=== PATIENT | female | born 1985 | race Two or more races ===

== ENCOUNTER 2017-01-21 01:44 | Emergency (ER) | payer OTHER ==
[~2017-01-21] VITALS: Ht 167.6 cm; Wt 81.6 kg
[2017-01-21] MEDS ORDERED: CLINDAMYCIN HCL 150 MG CAPSULE PO ONE (03:30)
[2017-01-21] MEDS ORDERED: KETOROLAC TROMETHAMINE 30 MG INJ IVP ONE (03:30)
[2017-01-21] MEDS ORDERED: DEXAMETHASONE SOD PHOSPHATE 4 MG INJ IV ONE (03:30)
[2017-01-21] MEDS ORDERED: KETOROLAC TROMETHAMINE 30 MG INJ ONE (03:45)
[2017-01-21] MEDS ORDERED: CLINDAMYCIN HCL 300 MG CAPSULE ONE (03:45)
[2017-01-21] MEDS ORDERED: DEXAMETHASONE SOD PHOSPHATE 10 MG INJ ONE (03:45)
--- NOTE | 2017-01-21 04:07 | NUR ---
Patient discharged to home in stable conditon. Written and verbal after care instructions given. Patient verbalizes understanding of instructions.
== END 2017-01-21 04:08 | disposition home or self-care (01) ==
LOC: ER 01:47
DX: L04.0 Acute lymphadenitis of face, head and neck (principal); F17.200 Nicotine dependence, unspecified, uncomplicated; R50.9 Fever, unspecified; R51 Headache; Z88.6 Allergy status to analgesic agent
CPT/HCPCS: A4663; J1100; J1885

== ENCOUNTER 2017-03-23 14:25 | Emergency (ER) | payer OTHER ==
[~2017-03-23] VITALS: Ht 167.6 cm; Wt 81.6 kg
--- NOTE | 2017-03-23 14:57 | NUR ---
Dr العلي at the bedside for eval and exam.
[2017-03-23 15:45] LABS: *BILIRUBIN,URIN NEGATIVE (NEGATIVE); *BLOOD, URINE Trace-intact (NEGATIVE); *COLOR,URINE YELLOW (YELLOW); *KETONES,URINE NEGATIVE (NEGATIVE); *PROTEIN,URINE 1+ (NEGATIVE); *UROBILINOGEN,URINE 0.2 E.U./dl (NORMAL); LEUKOCYTE ESTERASE ,URINE NEGATIVE (NEGATIVE); NITRITE, URINE NEGATIVE (NEGATIVE); PH,URINE 8.5 (5.0-8.0); UGLUCOSE NEGATIVE (NEGATIVE)
[2017-03-23 15:46] LABS: *CLARITY,URINE SLIGHTLY CLOUDY (CLEAR); *URINE HCG, QUAL NEGATIVE (NEGATIVE)
[2017-03-23 15:50] LABS: MUCUS,URINE MODERATE /LPF (0-FEW); SQUAMOUS EPITHELIAL CELL,UR MODERATE /HPF (NONE SEEN); URINE AMORPHOUS PHOSPHATES MANY /HPF; WBC,URINE 0-3 /HPF (0-3)
--- NOTE | 2017-03-23 17:14 | NUR ---
Patient discharged to home in stable conditon. Written and verbal after care instructions given. Patient verbalizes understanding of instructions.PT WALKS IN STEADY GAIT, ACCOMPANIED BY SO.
[2017-03-23 17:17] VITALS: BP 110/71
== END 2017-03-23 17:17 | disposition home or self-care (01) ==
LOC: ER 14:25
DX: S39.012A Strain of muscle, fascia and tendon of lower back, initial encounter (principal); F17.200 Nicotine dependence, unspecified, uncomplicated; W18.30XA Fall on same level, unspecified, initial encounter; Y93.89 Activity, other specified; Y92.9 Unspecified place or not applicable; Y99.9 Unspecified external cause status
CPT/HCPCS: 81001; 84703; 96372 ×2; 99284; A4663; J1885 ×2; J3490

== ENCOUNTER 2018-12-08 13:15 | Emergency (ER) | payer OTHER ==
[~2018-12-08] VITALS: Ht 170.2 cm; Wt 86.2 kg
--- NOTE | 2018-12-08 13:43 | NUR ---
Patient discharged to home in stable conditon. Written and verbal after care instructions given. Patient verbalizes understanding of instructions.
== END 2018-12-08 13:44 | disposition home or self-care (01) ==
LOC: ER 13:17
DX: S31.831A Laceration without foreign body of anus, initial encounter (principal); K62.5 Hemorrhage of anus and rectum; F17.200 Nicotine dependence, unspecified, uncomplicated; X58.XXXA Exposure to other specified factors, initial encounter; Y93.89 Activity, other specified; Y92.89 Other specified places as the place of occurrence of the external cause; Y99.8 Other external cause status
CPT/HCPCS: A4663

== ENCOUNTER 2021-05-18 00:04 | Emergency (ER) | payer SELFPAY ==
--- NOTE | 2021-05-18 00:30 | NUR ---
Patient was called to be traiged but was not present in the waiting room.
--- NOTE | 2021-05-18 00:45 | NUR ---
Patient was called to be traiged but was not present in the waiting room or outside of ER.
--- NOTE | 2021-05-18 01:00 | NUR ---
Patient was called to be triaged but was not present in the waiting room. Patient was not traiged or seen by ERMD.
== END 2021-05-18 01:14 | disposition left against medical advice (07) ==
LOC: ER 00:24
DX: Z53.21 Procedure and treatment not carried out due to patient leaving prior to being seen by health care provider (principal)